=== PATIENT | male | born 1990 | race Caucasian/White ===

== ENCOUNTER 2016-08-02 06:09 | Observation (INO) ==
--- NOTE | 2016-08-02 06:27 | Emergency Department Note ---
Disposition Clinical Impression: Drug overdose Qualifiers: Encounter type: initial encounter Injury intent: accidental or unintentional Qualified Code(s): T50.901A - Poisoning by unspecified drugs, medicaments and biological substances, accidental (unintentional), initial encounter Disposition: Still a Patient Condition: Good Referrals: NO,PCP [Primary Care Provider] - Forms: ED Satisfaction Letter General Adult HPI - General Chief complaint: ED Overdose Stated complaint: Overdose Time Seen by Provider: 08/02/16 06:20 Source: patient, EMS Nursing Notes Reviewed: Yes Vital Signs Reviewed: Yes - History of Present Illness HPI Narrative: Transmission Supervisor states that he took a quarter of a strip of Suboxone last night. Smokes marijuana and then went to the garage to smoke. The parents found him this morning unresponsive and cyanotic. They state they should can be aroused. The stories by EMS. He is alert and mentating appropriately this morning. He has no complaints other than some congestion. He denies any stimulant use or caffeine use. Pain Scale: 0 - Related Data Home Medications Medication Instructions Recorded Confirmed Cyclobenzaprine [Flexeril] 10 mg PO HS 10/07/14 10/07/14 Hydrocodone/Acetaminophen [[place] 1 tab PO Q6H 10/07/14 10/07/14 5-325 Tablet] Previous Rx's Medication Instructions Recorded Ibuprofen [Motrin] 600 mg PO Q6HR PRN #60 tablet 11/14/14 Allergies Allergy/AdvReac Type Severity Reaction Status Date / Time No Known Allergies Allergy Verified 10/07/14 10:08 All systems ED: reviewed and negative except as stated. Constitutional: Denies: fever, chills ENT ED: Reports: congestion Cardiovascular: Denies: chest pain, palpitations, dyspnea on exertion, syncope Respiratory: Denies: cough, dyspnea, wheezes Gastrointestinal: Denies: abdominal pain, nausea, vomiting, diarrhea Genitourinary: Denies: urgency, dysuria, frequency, hematuria Musculoskeletal: Denies: back pain, neck pain Neurological: Denies: headache, weakness Past Medical History - Past Medical History Medical history: Reports: no medical history Surgical history: Reports: orthopedic, other Psychiatric history: Reports: no psych history - Social History Smoking Status: Current every day smoker Smokeless Tobacco Status: No Alcohol use: Reports: none Drug use: Reports: none Physical Exam - General Limitations: no limitations General appearance: alert, in no apparent distress - Head Head exam: atraumatic, normocephalic - Eye Eye exam: Present: normal appearance, PERRL, EOMI - ENT ENT exam: normal exam, normal oropharynx, mucous membranes moist - Neck Neck exam: Present: normal inspection, full ROM, trachea midline. Absent: tenderness, meningismus, lymphadenopathy - Chest Chest inspection: Present: normal inspection, symmetric chest wall rise. Absent : tenderness - Respiratory Respiratory exam: Present: normal lung sounds bilaterally, respiratory distress. Absent: accessory muscle use - Cardiovascular Cardiovascular exam: Present: regular rate, normal rhythm, normal heart sounds - Abdominal Exam Abdominal exam: Present: soft, Non-Tender, normal bowel sounds. Absent: tenderness, distention, guarding, rebound, rigidity - Extremities Exam Extremities exam: Present: normal inspection, full ROM, normal capillary refill. Absent: tenderness, pedal edema Course Course Narrative: Male patient brought into the emergency department by EMS For drug overdose. He advises that he took a corner of the Suboxone last night. He states that he let this dissolve in his mouth. He states he also smoked marijuana. He then went to the garage to smoke a cigarette. Family found him this morning unresponsive in the garage. They state that he was blue. He was easily arousable when they started to shake him. They state that his color came back. The story appears to be confusing when EMS states that the family saw him go to the garage around 5:30. He is alert and oriented and maintaining his own airway at this time. He does appear tired. He denies any chest pain or shortness of breath. He denies any abdominal pain nausea vomiting or diarrhea. He denies any stimulant use. He is tachycardic at 140 while here. I am concerned because of the conflicting stories about how long he has possibly been in the garage and possibly been down. I will order a CK level as well as an ABG. I discussed several times with the patient that if he thinks of any other medication that could be an hardware sales assistant to let me know. He expresses very well. He expresses that he is willing to stay and be worked up for his tachycardia. He appears to be truthful during exam. His lung sounds are clear heart tones are normal. Abdomen is soft and nontender. He denies any trouble urinating or defecating. He denies any hematuria or hematochezia or melena. Patient does complain of just some nasal congestion that is consistent with his seasonal allergies. - Reevaluation(s) Reevaluation #1: Patient signed out to Dr. Gilbert and Dr. Arvizu Time: 07:03 Vital Signs Temperature 98.1 F 08/02/16 06:13 Pulse Rate 131 08/02/16 06:13 Respiratory Rate 16 08/02/16 06:13 Blood Pressure 137/81 08/02/16 06:13 O2 Sat by Pulse Oximetry 95 08/02/16 06:13 Temperature 98.1 F 08/02/16 06:13 Pulse Rate 116 08/02/16 07:00 Respiratory Rate 16 08/02/16 07:00 Blood Pressure 106/70 08/02/16 07:00 O2 Sat by Pulse Oximetry 96 08/02/16 07:00 Oxygen Delivery Oxygen Delivery Room Air Medical Decision Making - Medical Records Medical records reviewed: Yes I reviewed the patient's medical records. - Lab Data Lab results reviewed: Yes I reviewed the patient's lab results. Lab Results 08/02/16 08/02/16 Range/Units 06:25 06:43 Creatine Kinase 970 H (30-200) Units/L Urine Opiates Screen Positive H (Pttiop=367) ng/mL Ur Barbiturates Screen Negative (Oufxew=963) ng/mL Ur Phencyclidine Scrn Negative (Cutoff=25) ng/mL Ur Amphetamines Screen Negative (Yggzic=5752) ng/mL U Benzodiazepines Scrn Negative (Lcvlbh=481) ng/mL Urine Cocaine Screen Positive H (Cutoff= 300) ng/mL U Marijuana (THC) Screen Positive H (Cutoff = 50) ng/mL - Radiology Data Radiology results reviewed: Yes I reviewed the patient's radiology results. Attestation Statement - Attestation Attestation: I examined this patient and my medical decision-making was reviewed with the Resident Physician. I agree with the documented findings, disposition and treatment plan as described except to the extent set forth below. Tachycardic, no murmur. Mental status normal. No fever. Denies any drug use, denies SI or attempt. Agree with work up/treatment initiated by Dr. Padilla. Will be checked out to Drs. Gilbert/Nolberto at change of shift.
[2016-08-02] MEDS: 0.9 % Sodium Chloride 1,000 ML IVC SCH ×4 (06:32→18:35)
[2016-08-02 06:57] LABS: Amphetamine Screen,Urine Negative ng/mL (Cutoff=1000); Barbiturate Screen,Urine Negative ng/mL (Cutoff=200); Benzodiazepines Screen,Urine Negative ng/mL (Cutoff=200); Bilirubin,Urine Negative (Negative); Blood,Urine Large (Negative); Cannabinoid Screen,Urine Positive ng/mL (Cutoff = 50); Cocaine Screen,Urine Positive ng/mL (Cutoff= 300); Color,Urine Yellow (Yellow); Glucose,Urine (UA) Normal (Normal); Ketones,Urine Negative (Negative); Leukocyte Esterase,Urine Negative (Negative); Nitrite,Urine Negative (Negative); Opiate Screen,Urine Positive ng/mL (Cutoff=300); PH,Urine 5.5 pH Units (5.0-8.0); Phencyclidine Screen,Urine Negative ng/mL (Cutoff=25); Protein,Urine >=300 mg/dL (Neg-Trace); Specific Gravity,Urine 1.026 (1.010-1.025); Urobilinogen,Urine Normal (Normal)
[2016-08-02 07:02] LABS: Bacteria,Urine None Seen per hpf (None-Few); Hyaline Casts,Urine Moderate per lpf (None-Few); Squamous Epithelial Cell,Urine Many per lpf (None-Few); WBC,Urine 50-100 per hpf (0-3)
[2016-08-02 07:06] LABS: ABG Base Excess -1.5 mEq/L (-2.0 to 3.0); ABG HCO3 26.6 mEQ/L (21-27); ABG Oxygen Saturation 66 % (95-98); ABG PCO2 58 mmHg (35-45); ABG PH 7.27 pH Units (7.32-7.45); ABG TCO2 28.4 mEq/L (20-26)
[2016-08-02 07:06] LABS: Clarity,Urine Slightly Hazy (Clear)
[2016-08-02 07:09] LABS: ABG PO2 40 mmHg (85-104); Blood Gas FiO2 21 %
[2016-08-02 07:22] LABS: BUN/Creatinine Ratio 11 (6-26); Blood Urea Nitrogen 18 mg/dL (8-26); Carbon Dioxide 23 mEq/L (19-29); Chloride 104 mEq/L (98-109); Glucose 116 mg/dL (70-99); Osmolality,Calculated 295 (280-300); Sodium 141 mEq/L (136-145); eGFR For African Americans > 60 (> 60); eGFR For Non-African Americans 52 (> 60)
[2016-08-02 07:25] LABS: Carboxyhemoglobin 3.5 % (0-5)
[2016-08-02] MEDS ORDERED: 0.9 % Sodium Chloride 1,000 ML IVC ONE ×2 (08:30→09:31)
--- NOTE | 2016-08-02 09:32 | Emergency Department Note ---
START Narrative - START START: I examined this patient and my medical decision-making was reviewed with the EDGING MACHINE CATCHER/PA/Advanced Practice Nurse/Resident Physician. I agree with the documented findings, disposition and treatment plan as described except to the extent set forth below. Patient signed out after being found unresponsive in his garage. Positive for polysubstance abuse. ABG is thought to be mixed venous. He is not hypoxic here. He is awake alert and mentating appropriate. He is an acute kidney injury and elevated CPK. Given IV hydration will be admitted.
[2016-08-02] MEDS ORDERED: Naloxone 0.4 MG/ML INJ IVP PRN (09:50)
[2016-08-02] MEDS ORDERED: Acetaminophen 325 MG TABLET PO PRN (09:50)
[2016-08-02] MEDS ORDERED: *HR* OxyCODONE Immed Rel 5 MG TABLET PO PRN (09:50)
[2016-08-02 10:05] LABS: Magnesium 2.7 mg/dL (1.6-2.6); Phosphorous 5.4 mg/dL (2.3-4.7)
--- NOTE | 2016-08-02 10:27 | Emergency Department Note ---
Disposition Clinical Impression: Acute kidney injury Drug overdose Qualifiers: Encounter type: initial encounter Injury intent: accidental or unintentional Qualified Code(s): T50.901A - Poisoning by unspecified drugs, medicaments and biological substances, accidental (unintentional), initial encounter Rhabdomyolysis Qualifiers: Rhabdomyolysis type: non-traumatic Qualified Code(s): M62.82 - Rhabdomyolysis Disposition: Admitted As Inpatient Condition: Good General Adult HPI - General Chief complaint: ED Overdose Stated complaint: Overdose Time Seen by Provider: 08/02/16 06:20 Source: patient, EMS Limitations: no limitations - History of Present Illness Pain Scale: 0 - Related Data Home Medications Medication Instructions Recorded Confirmed Aspirin/Acetaminophen/Caffeine 1 tab PO DAILY PRN 08/02/16 08/02/16 [Excedrin Migraine Caplet] Previous Rx's Medication Instructions Recorded Ibuprofen [Motrin] 600 mg PO Q6HR PRN #60 tablet 11/14/14 Allergies Allergy/AdvReac Type Severity Reaction Status Date / Time No Known Allergies Allergy Verified 10/07/14 10:08 Constitutional: Denies: fever, chills ENT ED: Reports: congestion Cardiovascular: Denies: chest pain, palpitations, dyspnea on exertion, syncope Respiratory: Denies: cough, dyspnea, wheezes Gastrointestinal: Denies: abdominal pain, nausea, vomiting, diarrhea Genitourinary: Denies: urgency, dysuria, frequency, hematuria Musculoskeletal: Denies: back pain, neck pain Neurological: Denies: headache, weakness Past Medical History - Past Medical History Medical history: Reports: no medical history Surgical history: Reports: orthopedic, other Psychiatric history: Reports: no psych history - Social History Smoking Status: Current every day smoker Smokeless Tobacco Status: No Alcohol use: Reports: none Drug use: Reports: none Physical Exam - General Limitations: no limitations General appearance: alert, in no apparent distress Course Course Narrative: Patient taken over at signout from Dr. Padilla. Patient was interviewed and has text messages from up around midnight consistent with him going to the garage to smoke weed after taking a quarter of a tablet of Suboxone. This is his normal dose of Suboxone however he is unsure if there was something mixed with it. Patient was found by family this morning and the garage. He misses called and patient was brought to the hospital. The time of the interview patient is awake alert and oriented 3 in no respiratory distress. Pulse ox of 98%. Patient has no complaints at this time. - Reevaluation(s) Reevaluation #1: Patient with an elevated CK. Patient has received 3 L of fluid and is still not urinated during his stay. Patient has an elevated creatinine at 1.68 with no previous history of kidney disease. Patient brought into the hospital for further hydration and monitoring of labs. - Consultations Consultation #1: Discussed with Hospitalist, Dr. Mojica. Pt accepted for admission. Vital Signs Temperature 98.1 F 08/02/16 06:13 Pulse Rate 131 08/02/16 06:13 Respiratory Rate 16 08/02/16 06:13 Blood Pressure 137/81 08/02/16 06:13 O2 Sat by Pulse Oximetry 95 08/02/16 06:13 Temperature 97.7 F 08/02/16 10:19 Pulse Rate 102 08/02/16 10:19 Respiratory Rate 17 08/02/16 10:19 Blood Pressure 111/74 08/02/16 10:19 O2 Sat by Pulse Oximetry 98 08/02/16 10:19 Oxygen Delivery Oxygen Delivery Room Air Medical Decision Making - Lab Data Result diagrams: 08/02/16 06:25 08/02/16 06:25 Lab Results 08/02/16 08/02/16 08/02/16 Range/Units 06:25 06:25 06:25 Hgb 15.9 (12.9-16.9) g/dL ABG pH (7.32-7.45) pH Units ABG pCO2 (35-45) mmHg ABG pO2 (85-104) mmHg ABG HCO3 (21-27) mEQ/L ABG Total CO2 (20-26) mEq/L ABG O2 Saturation (95-98) % ABG Base Excess (-2.0 to 3.0) mEq/L Carboxyhemoglobin (0-5) % Blood Gas Modality Inspired O2 % Sodium 141 (136-145) mEq/L Potassium 4.0 (3.5-4.5) mEq/L Chloride 104 (98-109) mEq/L Carbon Dioxide 23 (19-29) mEq/L BUN 18 (8-26) mg/dL Creatinine 1.63 H (0.72-1.25) mg/dL Est GFR ( Amer) > 60 (> 60) Est GFR (Non-Af Amer) 52 L (> 60) BUN/Creatinine Ratio 11 (6-26) Glucose 116 H (70-99) mg/dL Calculated Osmolality 295 (280-300) Calcium 9.0 (8.6-10.8) mg/dL Phosphorus 5.4 H (2.3-4.7) mg/dL Magnesium 2.7 H (1.6-2.6) mg/dL Creatine Kinase 970 H (30-200) Units/L Urine Color (Yellow) Urine Clarity (Clear) Urine pH (5.0-8.0) pH Units Ur Specific [place] (1.010-1.025) Urine Protein (Neg-Trace) mg/dL Urine Glucose (UA) (Normal) mg/dL Urine Ketones (Negative) mg/dL Urine Blood (Negative) Urine Nitrite (Negative) Urine Bilirubin (Negative) Urine Urobilinogen (Normal) mg/dL Ur Leukocyte Esterase (Negative) Urine Microscopic RBC (0-3) per hpf Urine Microscopic WBC (0-3) per hpf Ur Squamous Epith Cells (None-Few) per lpf Urine Bacteria (None-Few) per hpf Hyaline Casts (None-Few) per lpf Ur Culture Indicated? (NO) Urine Opiates Screen (Gpnzlr=964) ng/mL Ur Barbiturates Screen (Tvqyjb=796) ng/mL Ur Phencyclidine Scrn (Cutoff=25) ng/mL Ur Amphetamines Screen (Qjfofs=2795) ng/mL U Benzodiazepines Scrn (Mlvsmy=810) ng/mL Urine Cocaine Screen (Cutoff= 300) ng/mL U Marijuana (THC) Screen (Cutoff = 50) ng/mL 08/02/16 08/02/16 08/02/16 Range/Units 06:43 06:43 06:55 Hgb (12.9-16.9) g/dL ABG pH 7.27 L (7.32-7.45) pH Units ABG pCO2 58 H (35-45) mmHg ABG pO2 40 L* (85-104) mmHg ABG HCO3 26.6 (21-27) mEQ/L ABG Total CO2 28.4 H (20-26) mEq/L ABG O2 Saturation 66 L (95-98) % ABG Base Excess -1.5 (-2.0 to 3.0) mEq/L Carboxyhemoglobin 3.5 (0-5) % Blood Gas Modality RA Inspired O2 21 % Sodium (136-145) mEq/L Potassium (3.5-4.5) mEq/L Chloride (98-109) mEq/L Carbon Dioxide (19-29) mEq/L BUN (8-26) mg/dL Creatinine (0.72-1.25) mg/dL Est GFR ( Amer) (> 60) Est GFR (Non-Af Amer) (> 60) BUN/Creatinine Ratio (6-26) Glucose (70-99) mg/dL Calculated Osmolality (280-300) Calcium (8.6-10.8) mg/dL Phosphorus (2.3-4.7) mg/dL Magnesium (1.6-2.6) mg/dL Creatine Kinase (30-200) Units/L Urine Color Yellow (Yellow) Urine Clarity Slightly Hazy (Clear) Urine pH 5.5 (5.0-8.0) pH Units Ur Specific [place] 1.026 H (1.010-1.025) Urine Protein >=300 H (Neg-Trace) mg/dL Urine Glucose (UA) Normal (Normal) mg/dL Urine Ketones Negative (Negative) mg/dL Urine Blood Large H (Negative) Urine Nitrite Negative (Negative) Urine Bilirubin Negative (Negative) Urine Urobilinogen Normal (Normal) mg/dL Ur Leukocyte Esterase Negative (Negative) Urine Microscopic RBC 5-15 H (0-3) per hpf Urine Microscopic WBC 50-100 H (0-3) per hpf Ur Squamous Epith Cells Many H (None-Few) per lpf Urine Bacteria None Seen (None-Few) per hpf Hyaline Casts Moderate H (None-Few) per lpf Ur Culture Indicated? YES A (NO) Urine Opiates Screen Positive H (Mgjdhf=744) ng/mL Ur Barbiturates Screen Negative (Ncexlz=296) ng/mL Ur Phencyclidine Scrn Negative (Cutoff=25) ng/mL Ur Amphetamines Screen Negative (Bodekk=4110) ng/mL U Benzodiazepines Scrn Negative (Odsdfm=313) ng/mL Urine Cocaine Screen Positive H (Cutoff= 300) ng/mL U Marijuana (THC) Screen Positive H (Cutoff = 50) ng/mL
[2016-08-02] MEDS: Nicotine 21 MG PATCH.TD24 TD SCH (13:19)
--- NOTE | 2016-08-02 15:29 | Internal Med History&Physical ---
Date of Encounter: 08/02/16 Time of Encounter: 15:25 Assessment and Plan (1) Drug overdose Current visit: Yes Status: Acute urine positive for cocaine and marijuana and opiates. 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 Admitted for observation, continue IV fluids for rhabdomyolysis. Qualifiers: Encounter type: initial encounter Injury intent: accidental or unintentional Qualified Code(s): T50.901A - Poisoning by unspecified drugs, medicaments and biological substances, accidental (unintentional), initial encounter (2) Acute kidney injury Current visit: Yes Status: Acute Most likely secondary to rhabdo. Continue IV fluids, monitor Chem-7. (3) Rhabdomyolysis Current visit: Yes Status: Acute Patient was found at 5:30 in the morning in the garage, unresponsive. will continue IVF at 150 for now repeat ck in the morning Qualifiers: Rhabdomyolysis type: non-traumatic Qualified Code(s): M62.82 - Rhabdomyolysis Internal Medicine - H&P: HPI Chief complaint: unresponsiveness Admitted From: Home Plans for Post Hospital Care: Home History of present illness: Mr. Jameson is a 26 year old male brought into the emergency department by EMS For drug overdose. He advises that he took a corner of the Suboxone last night. He states that he let this dissolve in his mouth. He states he also smoked marijuana. He then went to the garage to smoke a cigarette. Family found him this morning unresponsive in the garage. as per the mother initially patient could not be aroused and appeared as if he was not breathing. the family saw him go to the garage around 5:30. she put a wet towel in his head thats when he started to wake up. hence called squad and brought to ED. Workup at ED shows mild DKA with elevated CK. His urine is positive for cocaine and marijuana and opiates. At the time of my assessment, he was complaining of pain all over his body, he is alert and awake and oriented 3 but looks a little drowsy. Past Med Surg Social Fam HX - Past Medical History Medical history: no medical history Psychiatric history: no psych history - Past Surgical History Surgical History: orthopedic, other - Social History Smoking Status: Current every day smoker Smokeless Tobacco Status: No Alcohol use: none Drug use: none Internal Medicine - H&P: Meds Ibuprofen [Motrin] 600 mg PO Q6HR PRN #60 tablet 11/14/14 [Rx] Aspirin/Acetaminophen/Caffeine [Excedrin Migraine Caplet] 1 tab PO DAILY PRN 04/19 [History] Allergies No Known Allergies Allergy (Verified 10/07/14 10:08) All Systems PM: A 10-system review of systems was performed and is negative for pertinent findings except as documented above in the HPI. - Constitutional Constitutional: as per HPI - EENT Eyes: as per HPI Ears: as per HPI Nose, mouth and throat: as per HPI - Breasts Breasts: as per HPI - Cardiovascular Cardiovascular ROS IM: as per HPI - Respiratory Respiratory: as per HPI - Gastrointestinal Gastrointestinal: as per HPI - Genitourinary Genitourinary ROS male: as per HPI - Musculoskeletal Musculoskeletal ROS IM: as per HPI - Integumentary Integumentary IM: as per HPI - Constitutional Vitals: Temp Pulse Resp BP Pulse Ox 97.4 F L 92 17 111/72 99 08/02/16 11:59 08/02/16 11:59 08/02/16 11:59 08/02/16 11:59 08/02/16 11:59 General appearance: Present: A&O X 3, no acute distress Exam: Neck supple. Chest bilaterally clear, no added sounds. CVS S1 and S2, no murmurs rubs or gallops. Abdomen soft, nontender, bowel sounds are present. Extremities no edema. Neuro alert and awake, oriented 3, no focal neuro deficits. Skin multiple skin tattoos, no open wounds. Internal Med - H&P Results - Labs CBC & Chem 7: 08/02/16 06:25 08/02/16 06:25
[2016-08-03] MEDS: 0.9 % Sodium Chloride 1,000 ML IVC SCH ×3 (03:05→19:21)
[2016-08-03 05:57] LABS: Basophils # 0.1 K/mcL (0.0-0.2); Basophils % 0.3 %; Eosinophils # 0.2 K/mcL (0.0-0.6); Eosinophils % 1.2 %; Immature Granulocytes % 0.3 % (0-4); Lymphocytes # 3.7 K/mcL (0.6-4.6); Mean Corpuscular HGB Conc 34.1 g/dL (31.6-35.5); Mean Corpuscular Hemoglobin 30.8 pg (28.0-33.3); Mean Corpuscular Volume 90.1 fL (83.0-100.0); Mean Platelet Volume 10.2 fL (9.4-12.4); Monocytes # 1.4 K/mcL (0.0-1.3); Monocytes % 9.1 %; Neutrophils # 10.1 K/mcL (1.6-8.9); Platelet Count 225 K/mcL (140-400); Red Blood Count 4.55 M/mcL (4.19-5.50); Red Cell Distribution Width 12.4 % (11.5-14.5); Segmented Neutrophils % 65.1 %
[2016-08-03 06:11] LABS: BUN/Creatinine Ratio 11 (6-26); Blood Urea Nitrogen 9 mg/dL (8-26); Carbon Dioxide 25 mEq/L (19-29); Chloride 112 mEq/L (98-109); Glucose 92 mg/dL (70-99); Osmolality,Calculated 292 (280-300); Potassium 4.1 mEq/L (3.5-4.5); Sodium 142 mEq/L (136-145); eGFR For African Americans > 60 (> 60); eGFR For Non-African Americans > 60 (> 60)
[2016-08-03 06:50] LABS: Creatine Kinase 5949 Units/L (30-200)
[2016-08-03] MEDS: Nicotine 21 MG PATCH.TD24 TD SCH (09:01)
--- NOTE | 2016-08-03 17:13 | Internal Med Progress Note ---
Date of Encounter: 08/03/16 Time of Encounter: 13:00 - Assessment and plan (1) Drug overdose Current Visit: Yes Status: Acute Assessment and plan: Tox screen positive for opiates, cocaine, and marijuana. Patient is alert and oriented 3 and his mood and affect are appropriate. He has generalized body aches but is otherwise doing well. We will continue IV fluids for acute rhabdo. He has multiple family members at his bedside and appears to have a lot of social support. Qualifiers: Encounter type: initial encounter Injury intent: accidental or unintentional Qualified Code(s): T50.901A - Poisoning by unspecified drugs, medicaments and biological substances, accidental (unintentional), initial encounter (2) Rhabdomyolysis Current Visit: Yes Status: Acute Assessment and plan: CK trending up overnight from 970 the nearly 6000. Patient continues with generalized muscle pain. We will continue IV fluids and monitor overnight. Patient is alert and oriented 3 and now tolerating a regular diet. Qualifiers: Rhabdomyolysis type: non-traumatic Qualified Code(s): M62.82 - Rhabdomyolysis (3) Leukocytosis Current Visit: Yes Status: Acute Assessment and plan: Likely stress related, no signs of active infection. Urine culture negative. We will trend. No indication for antibiotics at this time. (4) Abnormal urinalysis Current Visit: Yes Status: Ruled-out Assessment and plan: Urine culture negative. Patient denies dysuria. No indication for antibiotics. (5) Acute kidney injury Current Visit: Yes Status: Resolved - Subjective Interval history: Patient seen and examined. On examination, patient sitting upright in bed conversing with his family. Patient stating he is starting to get his appetite back. He complains of generalized muscle aches and pain. - Constitutional Vitals: Temp Pulse Resp BP Pulse Ox 98.1 F 88 16 118/67 98 08/03/16 15:00 08/03/16 15:00 08/03/16 15:00 08/03/16 15:00 08/03/16 15:00 General appearance: Present: A&O X 3, pleasant, no acute distress, answers questions appropriately - Head Head exam: Present: atraumatic, normocephalic - Eye Eye exam: Present: PERRL, conjuntiva pink, sclera anicteric Pupils: Present: PERRL - Neck Neck exam general surgery: Present: supple, trachea midline. Absent: lymphadenopathy - Respiratory Respiratory exam: Present: CTAB. Absent: accessory muscle use, rales, respiratory distress, rhonchi, wheezes - Cardiovascular Cardiovascular exam: Present: RRR, +S1, +S2. Absent: diastolic murmur, gallop, rubs, systolic murmur - GI/Abdominal GI/Abdominal exam: Present: normal bowel sounds, soft, no peritoneal signs. Absent: distended, tenderness - Extremities Exam Extremities exam: Present: warm, radial pulses palpable and symetrical. Absent : calf tenderness, cyanotic, pedal edema - Neurological Exam Neurological exam: Present: alert, CN II-XII intact, oriented X3, no focal deficits, strengths equal and symetr throughout. Absent: pronater drift, facial droop, speech deficit - Skin Skin exam: Present: dry, intact, pallor, warm Internal Medicine: Result - Labs CBC & Chem 7: 08/03/16 05:28 08/03/16 05:28 Labs: Short CBC 08/03/16 Range/Units 05:28 WBC 15.6 H (4.3-11.1) K/mcL Hgb 14.0 D (12.9-16.9) g/dL Hct 41.0 (37.5-50.1) % Plt Count 225 (140-400) K/mcL Neutrophils # 10.1 H (1.6-8.9) K/mcL BMP 08/03/16 05:28 Sodium 142 Potassium 4.1 Chloride 112 H Carbon Dioxide 25 BUN 9 Creatinine 0.82 Glucose 92 Calcium 8.0 L - ABG Interpretation ABG results: ABG ABG pH 7.27 pH Units (7.32-7.45) L 08/02/16 06:55 ABG pCO2 58 mmHg (35-45) H 08/02/16 06:55 ABG pO2 40 mmHg (85-104) L* 08/02/16 06:55 ABG O2 Saturation 66 % (95-98) L 08/02/16 06:55 Consult Discharge Plan - Plan Referrals: Ashley Dos Santos, [employer] [Primary Care Provider] -
[2016-08-04] MEDS: 0.9 % Sodium Chloride 1,000 ML IVC SCH (03:07)
[2016-08-04] MEDS ORDERED: Simethicone 80 MG TAB.CHEW PO PRN (04:17)
[2016-08-04 04:52] LABS: Basophils # 0.1 K/mcL (0.0-0.2); Basophils % 0.5 %; Eosinophils # 0.1 K/mcL (0.0-0.6); Eosinophils % 0.8 %; Immature Granulocytes % 0.3 % (0-4); Lymphocytes # 2.5 K/mcL (0.6-4.6); Lymphocytes % 22.7 %; Mean Corpuscular Hemoglobin 30.5 pg (28.0-33.3); Mean Corpuscular Volume 87.1 fL (83.0-100.0); Mean Platelet Volume 10.3 fL (9.4-12.4); Monocytes # 1.1 K/mcL (0.0-1.3); Monocytes % 9.8 %; Neutrophils # 7.3 K/mcL (1.6-8.9); Platelet Count 217 K/mcL (140-400); Red Blood Count 4.59 M/mcL (4.19-5.50); Segmented Neutrophils % 65.9 %
[2016-08-04 05:21] LABS: Calcium 8.6 mg/dL (8.6-10.8); Carbon Dioxide 25 mEq/L (19-29); Chloride 109 mEq/L (98-109); Creatine Kinase 4684 Units/L (30-200); Glucose 103 mg/dL (70-99); Magnesium 1.8 mg/dL (1.6-2.6); Osmolality,Calculated 290 (280-300); Potassium 3.3 mEq/L (3.5-4.5); Sodium 141 mEq/L (136-145); eGFR For African Americans > 60 (> 60); eGFR For Non-African Americans > 60 (> 60)
[2016-08-04 05:44] LABS: BUN/Creatinine Ratio 8 (6-26); Blood Urea Nitrogen 6 mg/dL (8-26)
[2016-08-04 06:50] VITALS: BP 147/66
[2016-08-04] MEDS: Nicotine 21 MG PATCH.TD24 TD SCH (08:18)
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
== END 2016-08-04 13:46 | disposition home or self-care (01) ==
LOC: 3BNU 06:09 → EMEROO 06:09 → 3BNU 10:13
PROVIDERS: ADMIT Internal Medicine Endocrinology, Diabetes & Metabolism; ATTEND Nurse Practitioner Family

== ENCOUNTER 2018-09-30 10:28 | Observation (INO) ==
[2018-09-30] MEDS ORDERED: *HR* LORazepam 2 MG/ML VIAL IM ONE (10:41)
[2018-09-30] MEDS ORDERED: 0.9 % Sodium Chloride 1,000 ML IVC ONE ×2 (10:41→11:34)
[2018-09-30 11:06] LABS: Hematocrit 48.8 % (37.5-50.1); Hemoglobin 16.9 g/dL (12.9-16.9); Mean Corpuscular HGB Conc 34.6 g/dL (31.6-35.5); Mean Corpuscular Hemoglobin 32.1 pg (28.0-33.3); Mean Corpuscular Volume 92.8 fL (83.0-100.0); Mean Platelet Volume 9.1 fL (9.4-12.4); Platelet Count 316 K/mcL (140-400); Red Blood Count 5.26 M/mcL (4.19-5.50); Red Cell Distribution Width 13.5 % (11.5-14.5); White Blood Count 17.6 K/mcL (4.3-11.1)
[2018-09-30 11:26] LABS: Acetaminophen < 10 mcg/mL (10-20); BUN/Creatinine Ratio 16 (6-26); Blood Urea Nitrogen 24 mg/dL (6-20); Calcium 10.3 mg/dL (8.6-10.3); Carbon Dioxide 18 mEq/L (23-29); Chloride 107 mEq/L (98-107); Creatine Kinase 538 Units/L (30-223); Ethanol < 10 mg/dL (Less than 10); Glucose 162 mg/dL (70-105); Osmolality,Calculated 302 (280-300); Potassium 3.9 mEq/L (3.5-5.1); Salicylate < 2.5 mg/dL (15.0-30.0); Sodium 142 mEq/L (136-145); eGFR For African Americans > 60 (> 60); eGFR For Non-African Americans 55 (> 60)
[2018-09-30] MEDS: Isovue-370 500 ML BOTTLE IVP ONE (11:31)
[2018-09-30 11:34] LABS: Basophils # 0.2 K/mcL (0.0-0.2); Lymphocytes # 1.8 K/mcL (0.6-4.6); Monocytes # 0.9 K/mcL (0.0-1.3); Neutrophils # 14.8 K/mcL (1.6-8.9)
[2018-09-30 11:35] LABS: Platelet Estimate Normal (Normal)
[2018-09-30 12:15] LABS: Bilirubin,Urine Negative (Negative); Blood,Urine Large (Negative); Clarity,Urine Cloudy (Clear); Color,Urine Dark Yellow (Yellow); Glucose,Urine (UA) Normal (Normal); Ketones,Urine Negative (Negative); Leukocyte Esterase,Urine Negative (Negative); Nitrite,Urine Negative (Negative); PH,Urine 5.5 pH Units (5.0-8.0); Protein,Urine 100 mg/dL (Neg-Trace); Specific Gravity,Urine > 1.030 (1.010-1.025); Urobilinogen,Urine Normal (Normal)
[2018-09-30 12:18] LABS: Bacteria,Urine None Seen per hpf (None-Few); Squamous Epithelial Cell,Urine Many per lpf (None-Few)
[2018-09-30 12:50] LABS: Mucus,Urine Moderate (Few)
[2018-09-30 12:51] LABS: Amphetamine Screen,Urine Negative ng/mL (Cutoff=1000); Barbiturate Screen,Urine Negative ng/mL (Cutoff=200); Benzodiazepines Screen,Urine Negative ng/mL (Cutoff=200); Cannabinoid Screen,Urine Positive ng/mL (Cutoff = 50); Cocaine Screen,Urine Positive ng/mL (Cutoff= 300); Opiate Screen,Urine Negative ng/mL (Cutoff=300); Phencyclidine Screen,Urine Negative ng/mL (Cutoff=25)
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
[2018-09-30] MEDS ORDERED: Naloxone 0.4 MG/ML INJ IVP PRN (14:58)
[2018-09-30] MEDS ORDERED: *HR* Promethazine 25 MG/ML VIAL IVP PRN (14:58)
[2018-09-30] MEDS ORDERED: Acetaminophen 325 MG TABLET PO PRN (14:58)
[2018-09-30] MEDS ORDERED: Ondansetron ODT 4 MG TAB.RAPDIS SL PRN (14:58)
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
[2018-09-30] MEDS ORDERED: Haloperidol Lactate 5 MG/ML VIAL IVP ONE (19:16)
[2018-09-30] MEDS ORDERED: *HR* Promethazine 25 MG/ML VIAL IVP ONE (19:16)
[2018-10-01 06:07] LABS: Basophils # 0.1 K/mcL (0.0-0.2); Basophils % 0.9 %; Eosinophils # 0.2 K/mcL (0.0-0.6); Eosinophils % 1.8 %; Hematocrit 43.1 % (37.5-50.1); Immature Granulocytes % 0.2 % (0-4); Lymphocytes # 3.4 K/mcL (0.6-4.6); Lymphocytes % 35.4 %; Mean Corpuscular HGB Conc 33.2 g/dL (31.6-35.5); Mean Corpuscular Hemoglobin 31.2 pg (28.0-33.3); Mean Corpuscular Volume 93.9 fL (83.0-100.0); Mean Platelet Volume 9.1 fL (9.4-12.4); Monocytes # 1.2 K/mcL (0.0-1.3); Monocytes % 12.6 %; Neutrophils # 4.7 K/mcL (1.6-8.9); Platelet Count 226 K/mcL (140-400); Red Blood Count 4.59 M/mcL (4.19-5.50); Red Cell Distribution Width 13.8 % (11.5-14.5); Segmented Neutrophils % 49.1 %; White Blood Count 9.5 K/mcL (4.3-11.1)
[2018-10-01 06:09] LABS: Hemoglobin 14.3 g/dL (12.9-16.9)
[2018-10-01 06:31] LABS: BUN/Creatinine Ratio 22 (6-26); Blood Urea Nitrogen 18 mg/dL (6-20); Calcium 8.7 mg/dL (8.6-10.3); Carbon Dioxide 26 mEq/L (23-29); Chloride 108 mEq/L (98-107); Glucose 108 mg/dL (70-105); Osmolality,Calculated 302 (280-300); Sodium 145 mEq/L (136-145); eGFR For African Americans > 60 (> 60); eGFR For Non-African Americans > 60 (> 60)
--- NOTE | 2018-10-01 16:55 | Internal Med Progress Note ---
Hospitalist Progress Note - Encounter Date of Encounter: 10/01/18 Time of Encounter: 16:53 - Exam Vitals: Temp Pulse Resp BP Pulse Ox 98.2 F 80 16 101/64 98 10/01/18 11:46 10/01/18 11:46 10/01/18 11:46 10/01/18 11:46 10/01/18 11:46 Exam: General: Ill-appearing and in no acute distress HEENT: No erythema of posterior pharynx. No exudates. Lymphatics: No mandibular or cervical lymphadenopathy Cardiovascular: RRR. No murmurs. No chest wall tenderness. Lungs: Clear to auscelltation bilaterally. Regular chest rise. Abdomen: Non-tender. No rebound or gaurding. Nl bowel sounds. Extremities: No edema. 2+ pulses radial and pedal pulses Skin: Large abrasions over abdomen and legs BL that are now scabbed over. Psych: Poor attention. A&Ox3 but tangential. Paranoid. Neuro: digital analytics manager II-XII intact. 5/5 strength. Sensation to light touch and pinprick intact. - Assessment and Plan (1) Metabolic encephalopathy Current Visit: Yes Status: Acute Assessment and Plan: Patient with history of IV drug use presents with paranoid and hallucinogenic behavior in the setting of stable vitals, multiple abrasions on physical exam from self-induced injuries from acting upon hallucinations, and UDS positive for marijuana and cocaine. -Unclear if acute psychosis event secondary to drugs or acute psychotic break -Patient will need to be placed on a psych hold while drugs clear and assessed by psych if these behaviors continued despite clearance of intoxicants -Patient much more clearer this morning, however, still with some delusional thinking and behavior. Would like to have psych eval before discharge PLAN: - Psych hold - Psych consult - will see tomorrow (2) Leukocytosis Current Visit: Yes Status: Resolved Assessment and Plan: In setting of acute injuries. - RESOLVED (3) Acute kidney failure Current Visit: Yes Status: Resolved Assessment and Plan: In setting of drug abuse. Likely pre-renal. - RESOLVED (4) Drug abuse Current Visit: Yes Status: Acute Assessment and Plan: See above (5) Liver cyst Current Visit: Yes Status: Acute Assessment and Plan: Liver and renal cysts. Query whether this is secondary to polycystic kidney disease. - Follow up PCP regarding this, will need serial imaging and likely nephrology follow-up (6) Renal cyst Current Visit: Yes Status: Acute Assessment and Plan: See above DVT Prophylaxis: Ambulatory patient, SCDs - Time Spent with Patient Total time spent is greater than 50% in coordination of care (as documented) at patient's floor/unit and/or counseling patient: Internal Medicine: Result - Labs CBC & Chem 7: 10/01/18 05:44 10/01/18 05:44 Labs: Short CBC 10/01/18 Range/Units 05:44 WBC 9.5 (4.3-11.1) K/mcL Hgb 14.3 D (12.9-16.9) g/dL Hct 43.1 (37.5-50.1) % Plt Count 226 (140-400) K/mcL Neutrophils # 4.7 (1.6-8.9) K/mcL BMP 10/01/18 05:44 Sodium 145 Potassium 4.0 Chloride 108 H Carbon Dioxide 26 BUN 18 Creatinine 0.81 Glucose 108 H Calcium 8.7 Cardiac Enzymes 09/30/18 Range/Units 16:23 Troponin I 0.06 H* (< 0.04) ng/mL Consult Discharge Plan - Plan Referrals: Ashley Dos Santos, [employer] HE[employer] COACH [Advanced Practice Nurse] - __ (2) Leukocytosis Qualifiers: Leukocytosis type: leukemoid reaction Qualified Code(s): D72.823 - Leukemoid reaction (3) Acute kidney failure Qualifiers: Acute renal failure type: unspecified Qualified Code(s): N17.9 - Acute kidney failure, unspecified
[2018-10-02 08:40] VITALS: BP 96/58
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
--- NOTE | 2018-10-05 12:26 | Electrocardiograph Report ---
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
--- NOTE | 2018-10-05 12:26 | Electrocardiograph Report ---
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
== END 2018-10-02 15:21 | disposition home or self-care (01) ==
LOC: 3BNU 10:28 → EMEROOARM 10:28 → SUATTDRO 14:30 → 3BNU 15:55
PROVIDERS: ADMIT Internal Medicine; ATTEND Internal Medicine